=== PATIENT | male | born 2005 | race Caucasian/White ===

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

== ENCOUNTER 2024-03-26 08:53 | Outpatient (CLI) | payer OTHER | END 2024-03-26 09:05 | disposition home or self-care (01) | LOC: RAD 08:53 | PROVIDERS: ATTEND Orthopaedic Surgery | DX: M41.125 Adolescent idiopathic scoliosis, thoracolumbar region (principal) ==